=== PATIENT | male | born 1985 | race African-American/Black ===

== ENCOUNTER 2019-04-05 20:28 | Emergency (ER) | payer MEDICAID ==
[~2019-04-05] VITALS: Ht 182.9 cm; Wt 133.0 kg
[2019-04-05] MEDS ORDERED: LIDOCAINE HCL/PF 1% 10 MG/ML 5ML VIAL IJ ONE (22:45)
[2019-04-05] MEDS ORDERED: BACITRACIN ZINC OINT UDPKT TOP ONE (22:45)
[2019-04-05] MEDS ORDERED: ACETAMINOPHEN 500MG TABLET PO ONE (22:45)
[2019-04-05] MEDS ORDERED: TETANUS, DIPHTHERIA, PERTUSSIS VAC/PF 0.5ML (>7YR OLD) IM ONE (22:45)
[2019-04-06 00:13] VITALS: BP 125/64
== END 2019-04-06 00:14 | disposition home or self-care (01) ==
LOC: ER 20:28
DX: S71.011A Laceration without foreign body, right hip, initial encounter (principal); Y04.2XXA Assault by strike against or bumped into by another person, initial encounter; Y93.89 Activity, other specified; Y92.89 Other specified places as the place of occurrence of the external cause
CPT/HCPCS: 12004; 99283; J3490; Z7610; 90715